=== PATIENT | female | born 2000 | race Hispanic/Latino ===

== ENCOUNTER 2023-07-14 16:54 | Emergency (ER) | payer SELFPAY | END 2023-07-14 17:33 | disposition left against medical advice (07) | LOC: ERS 16:54 | DX: Z53.21 Procedure and treatment not carried out due to patient leaving prior to being seen by health care provider (principal) ==

== ENCOUNTER 2024-09-08 21:56 | Emergency (ER) | payer SELFPAY ==
[2024-09-08] MEDS ORDERED: Ondansetron ODT 4 MG TAB ONE (22:53)
== END 2024-09-08 23:53 | disposition home or self-care (01) ==
LOC: ERS 21:56
DX: F10.180 Alcohol abuse with alcohol-induced anxiety disorder (principal)
CPT/HCPCS: 99283; Q0162